=== PATIENT | female | born 1990 | race American Indian/Alaskan Native ===

== ENCOUNTER 2019-05-06 23:42 | Emergency (ER) | payer SELFPAY ==
--- NOTE | 2019-05-07 03:11 | Emergency Department Report ---
Chief Complaint: Upper Respiratory Infection Stated Complaint: COUGH, HEADACHE, FEVER, Time Seen by Provider: 05/07/19 02:15 - HPI History of Present Illness: Patient is a 28-year-old female presents emergency room with complaints of URI symptoms that began yesterday. She states she has associated cough, sore throat, ear pain, subjective fever. She denies any rhinorrhea, congestion, diarrhea, shortness of breath. She denies any sick contacts. Past medical history of asthma. No allergies medications. On exam Nontoxic appearing, no acute distress Normal oropharynx Normal TMs and canals bilaterally Normal turbinates no purulent drainage breath sounds are clear bilaterally without wheezing, rales, rhonchi Heart sounds Rapid flu is negative Vitals are normal patient is afebrile Symptoms and examination consistent with viral URI discussed symptomatic treatment and supportive care with pt advised to use flonase, zyrtec, and mucinex over the counter increase fluid intake over the next several days may drink warm tea, eat warm soup broth, do warm salt water gargles follow up with a primary care doctor in the next 2-3 days for reexamination return to the emergency room for any new or worsening symptoms medical screening examination performed MSE screening note: Focused history and physical exam performed. ED Disposition for MSE Clinical Impression: Upper respiratory infection Qualifiers: URI type: unspecified URI Qualified Code(s): J06.9 - Acute upper respiratory infection, unspecified Disposition: MED SCREENING EXAM-LEFT Is pt being admited?: No Does the pt Need Aspirin: No Condition: Stable Instructions: Upper Respiratory Infection (ED) Additional Instructions: may use flonase, zyrtec, and mucinex over the counter increase fluid intake over the next several days may drink warm tea, eat warm soup broth, do warm salt water gargles follow up with a primary care doctor in the next 2-3 days for reexamination return to the emergency room for any new or worsening symptoms Referrals: RADHA VALLEJO MD [Staff Physician] - 2-3 Days Forms: Accompanied Note, Work/School Release Form(ED) Time of Disposition: 03:10 Print Language: [place]IZ[place]
[2019-05-07 03:19] VITALS: BP 111/66
== END 2019-05-07 03:20 | disposition left against medical advice (07) ==
LOC: ED 23:42
DX: J06.9 Acute upper respiratory infection, unspecified (principal); Z91.013 Allergy to seafood
CPT/HCPCS: 87400; 99282